=== PATIENT | male | born 1980 | race Caucasian/White ===

== ENCOUNTER 2022-11-23 04:59 | Emergency (ER) | payer BC, SELFPAY ==
[2022-11-23 05:04] VITALS: BP 149/122; PULSE 81; RESP 22; TEMP 36.7; O2SAT 97; BMI 31.1
[2022-11-23 05:06] VITALS: BP 149/122; PULSE 72; RESP 17; O2SAT 94
--- NOTE | 2022-11-23 05:36 | ECG_ITS ---
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
--- NOTE | 2022-11-23 05:36 | XR_ITS ---
The [address] [address] Patient Name: NIKIA NUGENT MRN: [id number] date: 1980 Sex: M Assigned Patient Location: ER Current Patient Location: ED.MAIN Accession/Order Number: [id number] Exam Date: 11/23/2022 05:45 Report Date: 11/23/2022 06:16 At the request of: CHAD MARKER Procedure: XR chest 1V EXAM: XR chest 1V 11/23/2022 5:45 AM EDT OH001 CLINICAL STATEMENT: SOB COMPARISON: No prior studies are available at the time of dictation. TECHNIQUE: Single AP radiograph of the chest is submitted. FINDINGS: There is no acute airspace disease. The cardiac silhouette is normal. The costophrenic recesses are sharp. No pneumothorax. The bony elements are unremarkable. IMPRESSION: No acute cardiopulmonary process. Electronically authenticated by: FREDERICK SAID Date: 11/23/2022 06:16
--- NOTE | 2022-11-23 05:55 | ED_ITS ---
Documented by User: Taylor Stokes MD 11/23/22 06:48 HPI - General Adult General Chief complaint: Shortness of Breath/Dyspnea Stated complaint: SHORTNESS OF BREATH Time Seen by Provider: 11/23/22 05:09 Source: patient and family Mode of arrival: walk-in History of Present Illness HPI narrative: This 42-year-old male who has had Cannabinoid hyperemesis syndrome in the past presents for evaluation of nausea, vomiting, constipation and now shortness of breath and inability to get comfortable for the past 3-4 days. Patient states that he used marijuana last Sunday. He started getting sick on Sunday and has had several episodes of nausea and vomiting since that time. He has been trying to stay hydrated drinking water, Gatorade and Jell-O. He is having intermittent episodes of vomiting. He is passing gas but has not had a bowel movement since Sunday. He states tonight he feels like he cannot catch his breath. He is extremely anxious. He states the only time he can get any relief of his symptoms is when he is in a hot bath. His states that he has spent so much time and what hot bath that she thinks that he is dehydrating himself in a hot bath. He denies any specific chest pain or abdominal pain. He does not smoke cigarettes. Onset (ago): day(s) () Related Data Home Medications Medication Instructions Recorded Confirmed No Known Home Medications 11/23/22 11/23/22 Allergies Allergy/AdvReac Type Severity Reaction Status Date / Time No Known Drug Allergies Allergy Verified 11/23/22 05:10 Review of Systems ROS Status of ROS 10 or more systems reviewed and unremarkable except as noted in history and below Exam Narrative Exam Narrative: Constitutional: Nontoxic, anxious male resting currently on the stretcher, no respiratory distress, no active vomiting Vital signs: Afebrile, elevated blood pressure, he is not hypoxic pulse ox 97 percent on room air, pulse is normal at 80 HEENT: Normocephalic atraumatic, mucous membranes are dry, no scleral icterus noted Neck: Supple, no meningeal signs Chest: Clear to auscultation with good air entry, no wheezing rhonchi or rales appreciated CVS: Regular rate and rhythm S1-S2 no murmurs rubs or gallops pulses are brisk and equal bilaterally Abd: soft, nondistended, nontender, no rebound guarding rigidity, no tenderness is appreciated in the right upper quadrant, left upper quadrant, epigastrium or lower quadrants. No flank tenderness noted Extremity: Nontender, full range of motion Neuro: No focal deficits Psych: anxious, tearful at times Constitutional Vital Signs - 24 hr 11/23/22 05:04 Temperature 98.0 F Pulse Rate [Monitor Left] 81 Respiratory Rate 22 Blood Pressure [Left Arm] 149/122 H Pulse Oximetry 97 Oxygen Delivery Method Room Air Course Course Hospital Course: Pt reevaluated after IV fluids, Ativan and Zofran. He is much more comfortable. He is tolerating clear liquids. Vital Signs Vital signs: Vital Signs Temperature 98.0 F 11/23/22 05:04 Pulse Rate 81 11/23/22 05:04 Respiratory Rate 22 11/23/22 05:04 Blood Pressure 149/122 H 11/23/22 05:04 Pulse Oximetry 97 11/23/22 05:04 Oxygen Delivery Method Room Air 11/23/22 05:04 Temperature 98.0 F 11/23/22 05:04 Pulse Rate 81 11/23/22 05:04 Respiratory Rate 22 11/23/22 05:04 Blood Pressure 149/122 H 11/23/22 05:04 Pulse Oximetry 97 11/23/22 05:04 Oxygen Delivery Method Room Air 11/23/22 05:04 Medical Decision Making MDM Narrative Medical decision making narrative: His 42-year-old male presents for evaluation of nausea vomiting and generalized malaise with shortness of breath. The patient uses marijuana on Sunday and has been sick ever since then with nausea vomiting, inability to keep anything down and started developing shortness of breath with anxiety this morning. His brought him to the emergency department. He denies any baljit chest pain. He does not smoke cigarettes. He states he likely thing that gives him any relief is sitting in a hot bathtub. On arrival an EKG was performed that was a normal sinus rhythm with no acute changes. An IVs placed and he was medicated with IV fluids, Zofran, Pepcid and Ativan. Reevaluation he is clinically improved. He has a normal white count and hemoglobin. He does have an elevated creatinine indicating a certain degree of dehydration and a mildly low potassium at 3.3. Lab Data Labs: Lab Results 11/23/22 Range/Units 05:12 WBC 10.8 (4.0-11.0) 10^3/uL RBC 5.62 (4.70-6.10) 10^6/uL Hgb 16.0 (14.0-18.0) g/dL Hct 47.8 (42.0-54.0) % MCV 85.1 (80.0-94.0) fL MCH 28.5 (25.9-34.0) pg MCHC 33.5 (29.9-35.2) g/dL RDW 13.1 (11.0-15.0) % Plt Count 436 (150-450) 10^3/uL MPV 10.4 (9.5-13.5) fL Neut % (Auto) 69.6 (43.0-75.0) % Lymph % (Auto) 17.9 L (20.5-60.0) % Barron % (Auto) 11.5 (1.7-12.0) % Eos % (Auto) 0.3 L (0.9-7.0) % Baso % (Auto) 0.4 (0.2-2.0) % Neut # (Auto) 7.5 H (1.4-6.5) 10^3/uL Lymph # (Auto) 1.9 (1.2-3.8) 10^3/uL Barron # (Auto) 1.2 H (0.3-0.8) 10^3/uL Eos # (Auto) 0.0 (0.0-0.7) 10^3/uL Baso # (Auto) 0.0 (0.0-0.1) 10^3/uL Abs Immat Gran (auto) 0.03 (0.00-0.03) 10^3/uL Imm/Tot Granulo (auto) 0.3 (0.0-0.5) % D-Dimer 0.25 (<=0.59) mg/L FEU Sodium 131 L (136-145) mmol/L Potassium 3.2 L (3.5-5.1) mmol/L Chloride 93 L (98-107) mmol/L Carbon Dioxide 25.0 (21.0-32.0) mmol/L Anion Gap 16.2 BUN 21.0 H (7.0-18.0) mg/dL Creatinine 1.43 H (0.70-1.30) mg/dL Est GFR ( Amer) >60 (>=60) Est GFR (Non-Af Amer) 54 L (>=60) BUN/Creatinine Ratio 14.7 Glucose 174 H (74-106) mg/dL Calcium 9.6 (8.5-10.1) mg/dL Total Bilirubin 1.1 H (0.2-1.0) mg/dL AST 22 (15-37) U/L ALT 36 (16-63) U/L Alkaline Phosphatase 77 (46-116) U/L Troponin I High Sens 11.3 (4.0-76.1) pg/mL Total Protein 8.7 H (6.4-8.2) g/dL Albumin 4.2 (3.4-5.0) g/dL Globulin 4.5 g/dL Albumin/Globulin Ratio 0.9 ECG Data Attestation: I personally reviewed and interpreted this ECG as follows: (Sinus rhythm with sinus arrhythmia at 80 beats for minute, normal axis, normal intervals, no acute ST segment elevation or T-wave inversion) Discharge Plan Discharge Chief Complaint: Shortness of Breath/Dyspnea Clinical Impression: Cannabinoid hyperemesis syndrome, Situational anxiety, Dehydration, Hypokalemia, Acute hyponatremia Time of Disposition Decision: 07:34 Prescriptions / Home Meds: No Action No Known Home Medications Instructions: Hyponatremia (ED), Hypokalemia (ED), Cyclic Vomiting Syndrome (ED) Stand Alone Forms: Portal Instructions Referrals: Physician,Non-Staff, MD [Primary Care Provider] - 1 week Sign Out Sign Out Data: Patient Sign Out occurred on 11/23/22 at 07:09. Patient's care was discussed, and care was transferred from Taylor Stokes MD to Ren Crespo. Sign Out Comment: pending labs and re-eval Last updated by Taylor Stokes MD at 11/23/22 07:03 Documented by User: Ren Crespo 11/23/22 07:38 HPI - General Adult General Chief complaint: Shortness of Breath/Dyspnea Stated complaint: SHORTNESS OF BREATH Time Seen by Provider: 11/23/22 05:09 Related Data Home Medications Medication Instructions Recorded Confirmed No Known Home Medications 11/23/22 11/23/22 Allergies Allergy/AdvReac Type Severity Reaction Status Date / Time No Known Drug Allergies Allergy Verified 11/23/22 05:10 Exam Constitutional Vital Signs - 24 hr 11/23/22 05:04 Temperature 98.0 F Pulse Rate [Monitor Left] 81 Respiratory Rate 22 Blood Pressure [Left Arm] 149/122 H Pulse Oximetry 97 Oxygen Delivery Method Room Air Course Course Hospital Course: Pt reevaluated after IV fluids, Ativan and Zofran. He is much more comfortable. He is tolerating clear liquids. Vital Signs Vital signs: Vital Signs Temperature 98.0 F 11/23/22 05:04 Pulse Rate 81 11/23/22 05:04 Respiratory Rate 22 11/23/22 05:04 Blood Pressure 149/122 H 11/23/22 05:04 Pulse Oximetry 97 11/23/22 05:04 Oxygen Delivery Method Room Air 11/23/22 05:04 Temperature 98.0 F 11/23/22 05:04 Pulse Rate 81 11/23/22 05:04 Respiratory Rate 22 11/23/22 05:04 Blood Pressure 149/122 H 11/23/22 05:04 Pulse Oximetry 97 11/23/22 05:04 Oxygen Delivery Method Room Air 11/23/22 05:04 Medical Decision Making [facility] Narrative Medical decision making narrative: His 42-year-old male presents for evaluation of nausea vomiting and generalized malaise with shortness of breath. The patient uses marijuana on Sunday and has been sick ever since then with nausea vomiting, inability to keep anything down and started developing shortness of breath with anxiety this morning. His brought him to the emergency department. He denies any baljit chest pain. He does not smoke cigarettes. He states he likely thing that gives him any relief is sitting in a hot bathtub. On arrival an EKG was performed that was a normal sinus rhythm with no acute changes. An IVs placed and he was medicated with IV fluids, Zofran, Pepcid and Ativan. Reevaluation he is clinically improved. He has a normal white count and hemoglobin. He does have an elevated creatinine indicating a certain degree of dehydration and a mildly low potassium at 3.3. Patient signed out to me at 7am shift change. Dr Stokes initially saw the patient and completed the HPI and physical exam sections above. I saw and examined the patient and reviewed all test results. Decreased sodium, potassium and chloride. Increased BUN and Cr. Negative d-dimer and troponin. unremarkable CXR. He was given oral potassium to treat his hypokalemia. He felt better after ED treatment, which included NS IVF, IV Zofran and IV ativan. We discussed avoidance of marijuana. He was discharged home with prescriptions for zofran and for protonix - he complained to me of history of reflux-type symptoms. Dietary changes discussed. He will see his PCP for follow up or return to the ED if he worsens. Lab Data Labs: Lab Results 11/23/22 Range/Units 05:12 WBC 10.8 (4.0-11.0) 10^3/uL RBC 5.62 (4.70-6.10) 10^6/uL Hgb 16.0 (14.0-18.0) g/dL Hct 47.8 (42.0-54.0) % MCV 85.1 (80.0-94.0) fL MCH 28.5 (25.9-34.0) pg MCHC 33.5 (29.9-35.2) g/dL RDW 13.1 (11.0-15.0) % Plt Count 436 (150-450) 10^3/uL MPV 10.4 (9.5-13.5) fL Neut % (Auto) 69.6 (43.0-75.0) % Lymph % (Auto) 17.9 L (20.5-60.0) % Barron % (Auto) 11.5 (1.7-12.0) % Eos % (Auto) 0.3 L (0.9-7.0) % Baso % (Auto) 0.4 (0.2-2.0) % Neut # (Auto) 7.5 H (1.4-6.5) 10^3/uL Lymph # (Auto) 1.9 (1.2-3.8) 10^3/uL Barron # (Auto) 1.2 H (0.3-0.8) 10^3/uL Eos # (Auto) 0.0 (0.0-0.7) 10^3/uL Baso # (Auto) 0.0 (0.0-0.1) 10^3/uL Abs Immat Gran (auto) 0.03 (0.00-0.03) 10^3/uL Imm/Tot Granulo (auto) 0.3 (0.0-0.5) % D-Dimer 0.25 (<=0.59) mg/L FEU Sodium 131 L (136-145) mmol/L Potassium 3.2 L (3.5-5.1) mmol/L Chloride 93 L (98-107) mmol/L Carbon Dioxide 25.0 (21.0-32.0) mmol/L Anion Gap 16.2 BUN 21.0 H (7.0-18.0) mg/dL Creatinine 1.43 H (0.70-1.30) mg/dL Est GFR ( Amer) >60 (>=60) Est GFR (Non-Af Amer) 54 L (>=60) BUN/Creatinine Ratio 14.7 Glucose 174 H (74-106) mg/dL Calcium 9.6 (8.5-10.1) mg/dL Total Bilirubin 1.1 H (0.2-1.0) mg/dL AST 22 (15-37) U/L ALT 36 (16-63) U/L Alkaline Phosphatase 77 (46-116) U/L Troponin I High Sens 11.3 (4.0-76.1) pg/mL Total Protein 8.7 H (6.4-8.2) g/dL Albumin 4.2 (3.4-5.0) g/dL Globulin 4.5 g/dL Albumin/Globulin Ratio 0.9 Imaging Data Chest x-ray: Radiologist's impression: Patient Name: NIKIA NUGENT MRN: [id number] date: 1980 Sex: M Assigned Patient Location: ER Current Patient Location: ED.MAIN Accession/Order Number: [id number] Exam Date: 11/23/2022 05:45 Report Date: 11/23/2022 06:16 At the request of: TAYLOR MARKER Procedure: XR chest 1V EXAM: XR chest 1V 11/23/2022 5:45 AM EDT OH001 CLINICAL STATEMENT: SOB COMPARISON: No prior studies are available at the time of dictation. TECHNIQUE: Single AP radiograph of the chest is submitted. FINDINGS: There is no acute airspace disease. The cardiac silhouette is normal. The costophrenic recesses are sharp. No pneumothorax. The bony elements are unremarkable. IMPRESSION: No acute cardiopulmonary process. Electronically authenticated by: FREDERICK WILKINSON Date: 11/23/2022 06:16 Discharge Plan Discharge Chief Complaint: Shortness of Breath/Dyspnea Clinical Impression: Cannabinoid hyperemesis syndrome, Situational anxiety, Dehydration, Hypokalemia, Acute hyponatremia Time of Disposition Decision: 07:34 Prescriptions / Home Meds: No Action No Known Home Medications Instructions: Hyponatremia (ED), Hypokalemia (ED), Cyclic Vomiting Syndrome (ED) Stand Alone Forms: Portal Instructions Referrals: Physician,Non-Staff, [Primary Care Provider] - 1 week Sign Out Sign Out Data: Patient Sign Out occurred on 11/23/22 at 07:09. Patient's care was discussed, and care was transferred from Taylor Stokes MD to Ren Crespo. Sign Out Comment: pending labs and re-eval Last updated by Taylor Stokes MD at 11/23/22 07:03
[2022-11-23] MEDS: 0.9 % SODIUM CHLORIDE 1,000 ML 1000 ML IV (05:56)
[2022-11-23] MEDS: ONDANSETRON PF 4 MG/2 ML VIAL IV (05:57)
[2022-11-23] MEDS: FAMOTIDINE/PF 20 MG/2 ML VIAL IV (05:58)
[2022-11-23] MEDS: LORAZEPAM 2 MG/ML 1 ML VIAL 1 MG IV (05:58)
[2022-11-23 06:12] LABS: Basophils Percent Auto 0.4 % (0.2-2.0); Eosinophils Percent Auto 0.3 % (0.9-7.0); Hematocrit 47.8 % (42.0-54.0); Immature Granulocytes Abs Auto 0.03 10^3/uL (0.00-0.03); Immature Granulocytes Pct Auto 0.3 % (0.0-0.5); Lymphocytes Absolute Auto 1.9 10^3/uL (1.2-3.8); Lymphocytes Percent Auto 17.9 % (20.5-60.0); Mean Corpuscular HGB Conc 33.5 g/dL (29.9-35.2); Mean Corpuscular Hemoglobin 28.5 pg (25.9-34.0); Mean Corpuscular Volume 85.1 fL (80.0-94.0); Mean Platelet Volume 10.4 fL (9.5-13.5); Monocytes Absolute Auto 1.2 10^3/uL (0.3-0.8); Monocytes Percent Auto 11.5 % (1.7-12.0); Neutrophils Absolute Auto 7.5 10^3/uL (1.4-6.5); Neutrophils Percent Auto 69.6 % (43.0-75.0); Platelet Count 436 10^3/uL (150-450); Red Blood Count 5.62 10^6/uL (4.70-6.10); Red Cell Distribution Width 13.1 % (11.0-15.0); White Blood Count 10.8 10^3/uL (4.0-11.0)
[2022-11-23 06:29] LABS: Alanine Aminotransferase 36 U/L (16-63); Albumin Globulin Ratio 0.9; Albumin Level 4.2 g/dL (3.4-5.0); Alkaline Phosphatase 77 U/L (46-116); Anion Gap 16.2; Aspartate Amino Transferase 22 U/L (15-37); BUN Creatinine Ratio 14.7; Bilirubin Total 1.1 mg/dL (0.2-1.0); Calcium 9.6 mg/dL (8.5-10.1); Chloride 93 mmol/L (98-107); Estimated GFR (African America >60 (>=60); Estimated GFR (Non-African Ame 54 (>=60); Globulin 4.5 g/dL; Glucose 174 mg/dL (74-106); Potassium 3.2 mmol/L (3.5-5.1); Sodium 131 mmol/L (136-145); Total Protein 8.7 g/dL (6.4-8.2); Troponin I High Sensitivity 11.3 pg/mL (4.0-76.1)
[2022-11-23 06:45] LABS: D Dimer 0.25 mg/L FEU (<=0.59)
[2022-11-23] MEDS: POTASSIUM CHLORIDE 10 MEQ ER TABLET 20 MEQ PO (07:27)
[2022-11-23 07:52] VITALS: BP 132/90; PULSE 72; RESP 17; O2SAT 97
== END 2022-11-23 08:33 | disposition home or self-care (01) ==
PROVIDERS: Emergency Medicine; Emergency Provider Emergency Medicine
DX: R11.2 Nausea with vomiting, unspecified (principal); F12.90 Cannabis use, unspecified, uncomplicated; F41.8 Other specified anxiety disorders; E86.0 Dehydration; E87.6 Hypokalemia; E87.1 Hypo-osmolality and hyponatremia
CPT/HCPCS: 36415; 71045; 80053; 84484; 85025; 85378; 93005; 96374; 96375; 99285